=== PATIENT | female | born 1940 | race African-American/Black ===

== ENCOUNTER 2017-04-10 21:36 | Emergency (ER) | payer MEDICARE ==
--- NOTE | 2017-04-10 23:12 | CT ---
CT HEAD WITHOUT IV CONTRAST 04/10/17 HISTORY: Altered mental status. FINDINGS: There is no evidence of a hemorrhage, acute infarction, mass effect or midline shift. There is mild cerebral volume loss. The ventricular system is normal in size, shape, and position for the degree o f sulcal atrophy. Prominent dural based calcifications are seen along the falx. There is mucosal thi ckening in the right sphenoid sinus. Mastoid air cells are clear. There is no calvarial fracture see n. IMPRESSION: 1. No acute intracranial abnormalities demonstrated. 2. Mild sinus disease involving the right sphenoid sinus. POS: [facility]
--- NOTE | 2017-04-10 23:13 | RAD ---
THREE VIEWS RIGHT WRIST 04/10/17 HISTORY: Right wrist injury. Patient states right wrist pain started a couple of days ago. FINDINGS: There is mild widening of the scapholunate distance suggesting ligamentous injury. No acute fracture or dislocation is identified. IMPRESSION: 1. No acute osseous abnormality. 2. Widening of the scapholunate distance which can be seen with ligamentous instability. POS: [facility]
--- NOTE | 2017-04-10 23:16 | RAD ---
PORTABLE AP CHEST X-RAY 04/10/17 HISTORY: Altered mental status. FINDINGS: The cardiac silhouette is at the upper limits of normal in size. Pulmonary vasculature is within nor mal limits. The lungs are clear. Vascular calcification in the thoracic aorta. There is bilateral gl enohumeral osteoarthropathy. IMPRESSION: No acute cardiopulmonary process. POS: [facility]
--- NOTE | 2017-04-10 23:27 | RAD ---
THREE VIEWS OF THE RIGHT HAND 04/10/17 HISTORY: Right hand pain and wrist pain. FINDINGS: There is osteoarthritis involving the first carpometacarpal joint as well as the first metacarpophal angeal joint. Lucencies are seen in a few of the carpal bones which may be related to subchondral cy stic changes or interosseous ganglia. There is no fracture or dislocation seen. Metallic density ove rlying the proximal phalanx ring finger related to overlying external jewelry. IMPRESSION: Mild osteoarthritis, but no acute osseous abnormality is seen involving the right hand. POS: [facility]
[2017-04-10 23:30] LABS: #Eosinphils 0.1 thou/uL (0.0-0.7); #Lymphocytes 1.4 thou/uL (1.20-3.40); #Monocytes 0.7 thou/uL (0.11-0.59); #Neutrophils 3.4 thou/uL (1.40-6.50); %Basophils 0.6 % (0.0-1.0); %Eosinophils 1.4 % (0.0-10.0); %Lymphocytes 24.4 % (21.0-51.0); %Monocytes 11.8 % (0.0-10.0); %Neutrophils 61.7 % (42.0-75.0); Hemoglobin 11.7 g/dL (12.0-16.0); Mean Corpuscular HGB CONC 31.9 g/dL (32.0-36.0); Mean Corpuscular Hemoglobin 29.8 pg (27.0-31.0); Mean Corpuscular Volume 93.4 fl (81.0-99.0); Mean Platelet Volume 6.2 fL (7.4-10.4); Platelet Count 186 thou/uL (130-400); RBC Distribution Width 14.1 % (11.5-14.5); Red Blood Cell (RBC) Count 3.92 mill/uL (4.20-5.40); White Blood Cell (WBC) Count 5.6 thou/uL (4.8-10.8)
[2017-04-10 23:43] LABS: INR-International Normal Ratio 1.1; Prothrombin Time 13.9 SEC (12.0-14.7)
[2017-04-10 23:53] LABS: CKMB 1.7 ng/mL (0-6.6); Troponin I 0.024 ng/mL (< 0.028)
[2017-04-11] LABS: ALT (SGPT) 7 U/L (8-55); AST (SGOT) 21 U/L (5-34); Albumin 3.4 g/dL (3.4-4.8); Alkaline Phosphatase 106 U/L (40-150); Anion Gap 15 mmol/L (10-20); BUN (Urea Nitrogen) 18 mg/dL (9.8-20.1); Bilirubin, Total 0.6 mg/dL (0.2-1.2); Calc. Creatinine Clearance 0 mL/min (70-130); Calcium 9.1 mg/dL (7.8-10.44); Carbon Dioxide 22 mmol/L (23-31); Chloride 109 mmol/L (98-107); Estimated GFR-MDRD 54; Globulin 3.8 g/dL (2.4-3.5); Glucose 104 mg/dL (83-110); Potassium 3.5 mmol/L (3.5-5.1); Protein, Total 7.2 g/dL (6.0-8.3); Sodium 142 mmol/L (136-145)
== END 2017-04-11 02:40 | disposition short-term general hospital (02) ==
LOC: NAV ERS 21:36
DX: I44.1 Atrioventricular block, second degree (principal); I10 Essential (primary) hypertension; Z79.899 Other long term (current) drug therapy
CPT/HCPCS: 36415; 70450; 71010; 80053; 82553; 83880; 84484; 85025; 85610; 93005

== ENCOUNTER 2017-06-30 14:58 | Emergency (ER) | payer MEDICARE ==
[2017-06-30] MEDS ORDERED: Clindamycin 300 MG/2 ML VIAL ONE (17:41)
[2017-06-30] MEDS ORDERED: Sodium Chloride 0.9% 100 ML ONE (17:43)
--- NOTE | 2017-06-30 17:46 | RAD ---
PORTABLE AP CHEST X-RAY 06/30/17 HISTORY: Lower extremity edema. Right lower leg wound which has enlarged. COMPARISON: 06/13/17. FINDINGS: Dual lead left subclavian cardiac pacing device remains in place. The cardiac silhouette and pulmona ry vasculature are within normal limits. Vascular calcifications seen in the thoracic aorta. Bilater al glenohumeral osteoarthropathy is again seen suggesting intra-articular loose body inferior to the right glenohumeral joint. No other interval change. IMPRESSION: No acute cardiopulmonary process. Chest is stable from prior study. POS: [facility]
[2017-06-30 18:01] LABS: #Basophils 0.1 thou/uL (0.0-0.2); #Eosinphils 0.2 thou/uL (0.0-0.7); #Lymphocytes 1.2 thou/uL (1.20-3.40); #Monocytes 0.8 thou/uL (0.11-0.59); #Neutrophils 2.7 thou/uL (1.40-6.50); %Basophils 1.7 % (0.0-1.0); %Eosinophils 4.4 % (0.0-10.0); %Lymphocytes 24.2 % (21.0-51.0); %Monocytes 16.3 % (0.0-10.0); %Neutrophils 53.4 % (42.0-75.0); Hemoglobin 9.4 g/dL (12.0-16.0); Mean Corpuscular HGB CONC 31.4 g/dL (32.0-36.0); Mean Corpuscular Hemoglobin 28.9 pg (27.0-31.0); Mean Corpuscular Volume 92.2 fl (81.0-99.0); Mean Platelet Volume 5.5 fL (7.4-10.4); Platelet Count 213 thou/uL (130-400); RBC Distribution Width 13.8 % (11.5-14.5); Red Blood Cell (RBC) Count 3.25 mill/uL (4.20-5.40); White Blood Cell (WBC) Count 5.1 thou/uL (4.8-10.8)
[2017-06-30 18:16] LABS: Troponin I 0.038 ng/mL (< 0.028)
[2017-06-30 18:18] LABS: ALT (SGPT) 7 U/L (8-55); AST (SGOT) 15 U/L (5-34); Albumin 2.8 g/dL (3.4-4.8); Alkaline Phosphatase 66 U/L (40-150); Anion Gap 12 mmol/L (10-20); BUN (Urea Nitrogen) 20 mg/dL (9.8-20.1); Bilirubin, Total 0.3 mg/dL (0.2-1.2); CK (CPK) 85 U/L (29-168); Calc. Creatinine Clearance 0 mL/min (70-130); Calcium 8.7 mg/dL (7.8-10.44); Carbon Dioxide 23 mmol/L (23-31); Chloride 110 mmol/L (98-107); Estimated GFR-MDRD 59; Globulin 3.4 g/dL (2.4-3.5); Glucose 102 mg/dL (83-110); Potassium 3.8 mmol/L (3.5-5.1); Protein, Total 6.2 g/dL (6.0-8.3); Sodium 141 mmol/L (136-145)
== END 2017-06-30 19:39 | disposition short-term general hospital (02) ==
LOC: NAV ERS 14:58
DX: L03.115 Cellulitis of right lower limb (principal); D64.9 Anemia, unspecified; I89.0 Lymphedema, not elsewhere classified; F03.90 Unspecified dementia, unspecified severity, without behavioral disturbance, psychotic disturbance, mood disturbance, and anxiety; I10 Essential (primary) hypertension; Z79.82 Long term (current) use of aspirin; Z79.899 Other long term (current) drug therapy
CPT/HCPCS: 71010; 80053; 82553; 83880; 84484; 85025; 87040; 93005; 96365; J3490

== ENCOUNTER 2017-08-19 19:14 | Emergency (ER) | payer MEDICARE ==
[2017-08-19] MEDS ORDERED: Furosemide 40 MG/4 ML VIAL ONE (19:53)
[2017-08-19 20:07] LABS: #Basophils 0.1 thou/uL (0.0-0.2); #Eosinphils 0.1 thou/uL (0.0-0.7); #Lymphocytes 1.3 thou/uL (1.20-3.40); #Monocytes 0.8 thou/uL (0.11-0.59); #Neutrophils 2.7 thou/uL (1.40-6.50); %Basophils 1.2 % (0.0-1.0); %Eosinophils 2.2 % (0.0-10.0); %Lymphocytes 25.8 % (21.0-51.0); %Monocytes 15.7 % (0.0-10.0); %Neutrophils 55.1 % (42.0-75.0); Hemoglobin 10.3 g/dL (12.0-16.0); Mean Corpuscular HGB CONC 29.7 g/dL (32.0-36.0); Mean Corpuscular Hemoglobin 30.7 pg (27.0-31.0); Mean Platelet Volume 6.6 fL (7.4-10.4); Platelet Count 194 thou/uL (130-400); RBC Distribution Width 13.7 % (11.5-14.5); Red Blood Cell (RBC) Count 3.36 mill/uL (4.20-5.40)
[2017-08-19 20:23] LABS: CKMB 0.8 ng/mL (0-6.6); Troponin I 0.014 ng/mL (< 0.028)
[2017-08-19 20:30] LABS: Anion Gap 15 mmol/L (10-20); BUN (Urea Nitrogen) 15 mg/dL (9.8-20.1); Calc. Creatinine Clearance 0 mL/min (70-130); Carbon Dioxide 19 mmol/L (23-31); Chloride 110 mmol/L (98-107); Estimated GFR-MDRD 70; Potassium 4.2 mmol/L (3.5-5.1); Sodium 140 mmol/L (136-145)
[2017-08-19 20:31] LABS: ALT (SGPT) 7 U/L (8-55); AST (SGOT) 19 U/L (5-34); Albumin 2.8 g/dL (3.4-4.8); Alkaline Phosphatase 84 U/L (40-150); Bilirubin, Total 0.3 mg/dL (0.2-1.2); Globulin 4.3 g/dL (2.4-3.5); Glucose 106 mg/dL (83-110); Protein, Total 7.1 g/dL (6.0-8.3)
[2017-08-19] MEDS ORDERED: Enoxaparin Sodium 40 MG/0.4 ML SYRINGE ONE (22:37)
[2017-08-19 22:40] LABS: Bilirubin Negative (Negative); Blood, Urine Moderate (Negative); Clarity Clear (Clear); Glucose, Urine (Dipstick) Negative (Negative); Leukocyte Negative (Negative); Nitrite Negative (Negative); Protein, Urine (Dipstick) Negative (Neg-Trace); Specific Gravity, Urine 1.015 (1.005-1.030); Urobilinogen 0.2 mg/dL (0.2-1.0)
[2017-08-19 22:49] LABS: Bacteria/HPF Rare-Few HPF (None Seen); Squamous Epithelial 0-3 HPF (0-3); WBC/HPF 0-3 HPF (0-3)
== END 2017-08-19 22:54 | disposition short-term general hospital (02) ==
LOC: NAV ERS 19:14
DX: I11.0 Hypertensive heart disease with heart failure (principal); I50.21 Acute systolic (congestive) heart failure; I89.0 Lymphedema, not elsewhere classified; R79.1 Abnormal coagulation profile; E78.5 Hyperlipidemia, unspecified; F03.90 Unspecified dementia, unspecified severity, without behavioral disturbance, psychotic disturbance, mood disturbance, and anxiety; Z79.899 Other long term (current) drug therapy
CPT/HCPCS: 51702; 80053; 81003; 81015; 82553; 83880; 84484; 85025; 85379; 87086; 96372; 96374; J1650; J1940

== ENCOUNTER 2017-11-25 13:15 | Emergency (ER) | payer MEDICARE ==
[2017-11-25] MEDS ORDERED: Adacel (T-DAP) 0.5 ML VIAL ONE (13:30)
--- NOTE | 2017-11-25 13:59 | CT ---
CT BRAIN WITHOUT CONTRAST: Date: 11/25/17 HISTORY: 77-year-old female with fall, dementia. FINDINGS: Comparison made with exam of 06/13/17. Changes of cortical atrophy and chronic small vessel ischemic disease area again seen. Bilateral basa l ganglia calcifications are again noted. No evidence of acute infarct, hemorrhage, midline shift, or abnormal extra-axial fluid collections are seen. The bony calvarium is intact. Visualized paranasal sinuses and mastoid air cells are well aerated. IMPRESSION: No CT evidence of acute intracranial process. POS: [facility]
--- NOTE | 2017-11-25 14:12 | CT ---
NONCONTRAST CT CERVICAL SPINE: Date: 11/25/17 HISTORY: Patient fell out of bed. History of dementia. Patient on backboard and c-collar. Neck injury. TECHNIQUE: Contiguous axial CT images are obtained through the cervical spine from the skull base to the T1-2 le sintia. Sagittal and coronal reformatted images are provided. FINDINGS: Multilevel degenerative changes are seen. There is narrowing of the intervertebral disc spaces at all levels with posterior osteophyte formation seen at multiple levels. End plate degenerative changes a re seen at multiple levels with levels demonstrating what appear to represent Schmorl's nodes. No fra cture or subluxation is seen involving the cervical spine. The prevertebral soft tissues are within n ormal limits. Visualized lung apices demonstrate a normal CT appearance. There is coarse calcificatio n seen adjacent to the innominate artery, which was also seen on a prior CTA of the chest on 10/12/11 . IMPRESSION: Multilevel degenerative changes in the cervical spine, but no fracture or subluxation is identified. POS: [facility]
[2017-11-25] MEDS ORDERED: Lidocaine 1% 20 ML MDV ONE (14:28)
== END 2017-11-25 15:30 | disposition home or self-care (01) ==
LOC: NAV ERS 13:15
DX: S01.111A Laceration without foreign body of right eyelid and periocular area, initial encounter (principal); S01.81XA Laceration without foreign body of other part of head, initial encounter; I87.8 Other specified disorders of veins; E78.5 Hyperlipidemia, unspecified; F03.90 Unspecified dementia, unspecified severity, without behavioral disturbance, psychotic disturbance, mood disturbance, and anxiety; I10 Essential (primary) hypertension; F41.9 Anxiety disorder, unspecified; Z79.899 Other long term (current) drug therapy; W06.XXXA Fall from bed, initial encounter
CPT/HCPCS: 12011; 70450; 72125; 90471; 90715; J2001

== ENCOUNTER 2018-04-02 10:33 | Emergency (ER) | payer MEDICARE ==
[2018-04-02] MEDS ORDERED: Acetaminophen 500 MG TAB ONE (11:27)
[2018-04-02] MEDS ORDERED: cloNIDine 0.2 MG TAB ONE (11:27)
--- NOTE | 2018-04-02 11:55 | RAD ---
LEFT HAND RADIOGRAPHS 3 VIEWS: Date: 04/02/18 PROVIDED CLINICAL HISTORY: Left hand swelling without known injury. FINDINGS: Degenerative changes are seen at the first CMC joint. There is no evidence for fracture or other acut e osseous abnormality. Alignment appears anatomic. Joint spaces appear preserved. Nonspecific regiona l soft tissue swelling involving the dorsum of the hand and volar aspects of the hand and wrist. IMPRESSION: No evidence for an acute osseous abnormality. Nonspecific soft tissue swelling. POS: [facility]
[2018-04-02 12:27] LABS: Mean Corpuscular HGB CONC 31.6 g/dL (32.0-36.0); Mean Corpuscular Hemoglobin 29.1 pg (27.0-31.0); Mean Corpuscular Volume 92.2 fl (81.0-99.0); Mean Platelet Volume 6.6 fL (7.4-10.4); Platelet Count 214 thou/uL (130-400); RBC Distribution Width 12.8 % (11.5-14.5); Red Blood Cell (RBC) Count 4.46 mill/uL (4.20-5.40); White Blood Cell (WBC) Count 6.5 thou/uL (4.8-10.8)
[2018-04-02 12:27] LABS: Bilirubin Negative (Negative); Blood, Urine Moderate (Negative); Clarity Clear (Clear); Glucose, Urine (Dipstick) Negative (Negative); Leukocyte Negative (Negative); Nitrite Negative (Negative); Protein, Urine (Dipstick) Trace mg/dL (Neg-Trace); Specific Gravity, Urine 1.015 (1.005-1.030); pH, Urine 5.5 (5.0-9.0)
[2018-04-02 12:41] LABS: Band 3 % (5-11); Lymphocytes 23 % (21-51); MDiff Complete? YES; Monocytes 9 % (0-10); Neutrophil 65 % (42-75); PLT Morphology Comment Appears Adequate; RBC Morphology Normal
[2018-04-02 12:53] LABS: Bacteria/HPF Rare-Few HPF (None Seen); RBC/HPF 0-3 HPF (0-3); Squamous Epithelial 0-3 HPF (0-3); WBC/HPF None Seen HPF (0-3)
[2018-04-02 13:06] LABS: ALT (SGPT) 8 U/L (8-55); AST (SGOT) 16 U/L (5-34); Albumin 3.3 g/dL (3.4-4.8); Alkaline Phosphatase 65 U/L (40-150); Anion Gap 15 mmol/L (10-20); BUN (Urea Nitrogen) 25 mg/dL (9.8-20.1); Bilirubin, Total 0.9 mg/dL (0.2-1.2); Calc. Creatinine Clearance 0 mL/min (70-130); Calcium 9.4 mg/dL (7.8-10.44); Carbon Dioxide 21 mmol/L (23-31); Chloride 106 mmol/L (98-107); Estimated GFR-MDRD 55; Globulin 3.6 g/dL (2.4-3.5); Glucose 114 mg/dL (83-110); Potassium 3.7 mmol/L (3.5-5.1); Protein, Total 6.9 g/dL (6.0-8.3); Sodium 138 mmol/L (136-145)
[2018-04-02] MEDS ORDERED: Clindamycin 150 MG CAP ONE (13:28)
[2018-04-02 14:31] LABS: CKMB 0.6 ng/mL (0-6.6); Troponin I 0.031 ng/mL (< 0.028)
[2018-04-02] MEDS ORDERED: Sodium Chloride 0.9% 250 ML 250 ML ONE (15:25)
[2018-04-02 15:58] LABS: INR-International Normal Ratio 1.2; PTT 39.7 SEC (22.9-36.1); Prothrombin Time 15.4 SEC (12.0-14.7)
== END 2018-04-02 16:19 | disposition short-term general hospital (02) ==
LOC: NAV ERS 10:33
DX: L03.114 Cellulitis of left upper limb (principal); E78.5 Hyperlipidemia, unspecified; I10 Essential (primary) hypertension; F03.90 Unspecified dementia, unspecified severity, without behavioral disturbance, psychotic disturbance, mood disturbance, and anxiety; F41.9 Anxiety disorder, unspecified; Z79.899 Other long term (current) drug therapy
CPT/HCPCS: 36415; 80053; 81003; 81015; 82553; 83605; 84484; 85025; 85610; 85652; 85730; 87040; 87086; 93005; 96361; 96365; J3370; J7050

== ENCOUNTER 2018-04-23 19:20 | Emergency (ER) | payer MEDICARE | END 2018-04-23 20:20 | disposition home or self-care (01) | LOC: NAV ERS 19:20 | DX: M75.01 Adhesive capsulitis of right shoulder (principal); E78.5 Hyperlipidemia, unspecified; I10 Essential (primary) hypertension; F03.90 Unspecified dementia, unspecified severity, without behavioral disturbance, psychotic disturbance, mood disturbance, and anxiety; F41.9 Anxiety disorder, unspecified; Z79.899 Other long term (current) drug therapy | CPT/HCPCS: 99283 ==

== ENCOUNTER 2018-11-24 13:40 | Emergency (ER) | payer MEDICARE ==
[2018-11-24 14:49] LABS: ALT (SGPT) 14 U/L (8-55); AST (SGOT) 33 U/L (5-34); Albumin 3.6 g/dL (3.4-4.8); Alkaline Phosphatase 120 U/L (40-150); Anion Gap 18 mmol/L (10-20); BUN (Urea Nitrogen) 45 mg/dL (9.8-20.1); Bilirubin, Total 0.4 mg/dL (0.2-1.2); Calc. Creatinine Clearance 0 mL/min (70-130); Calcium 10.7 mg/dL (7.8-10.44); Carbon Dioxide 15 mmol/L (23-31); Chloride 111 mmol/L (98-107); Estimated GFR-MDRD 43; Globulin 4.7 g/dL (2.4-3.5); Glucose 90 mg/dL (83-110); Protein, Total 8.3 g/dL (6.0-8.3); Sodium 139 mmol/L (136-145)
[2018-11-24 14:51] LABS: Eosinophils 4 % (0-10); Hemoglobin 13.3 g/dL (12.0-16.0); Lymphocytes 36 % (21-51); MDiff Complete? YES; Mean Corpuscular Volume 96.7 fL (78.0-98.0); Mean Platelet Volume 5.7 fL (7.4-10.4); Monocytes 13 % (0-10); Neutrophil 47 % (42-75); Platelet Count 194 thou/uL (130-400); Platelet Morphology Comment Appears Adequate; RBC Distribution Width 13.5 % (11.5-14.5); Red Blood Cell (RBC) Count 4.28 mill/uL (4.20-5.40); White Blood Cell (WBC) Count 3.7 thou/uL (4.8-10.8)
[2018-11-24] MEDS ORDERED: Acetaminophen 500 MG TAB ONE (14:57)
== END 2018-11-24 15:24 | disposition home or self-care (01) ==
LOC: NAV ERS 13:40
DX: I15.8 Other secondary hypertension (principal); F41.9 Anxiety disorder, unspecified; F03.90 Unspecified dementia, unspecified severity, without behavioral disturbance, psychotic disturbance, mood disturbance, and anxiety; I73.9 Peripheral vascular disease, unspecified; Z79.899 Other long term (current) drug therapy
CPT/HCPCS: 80053; 85025; 99283

== ENCOUNTER 2022-08-02 16:25 | Emergency (ER) | payer OTHER ==
[2022-08-02 16:56] LABS: #Eosinphils 0.1 thou/uL (0.0-0.7); #Lymphocytes 1.1 thou/uL (1.20-3.40); #Monocytes 0.5 thou/uL (0.11-0.59); #Neutrophils 2.8 thou/uL (1.40-6.50); %Basophils 0.7 % (0.0-1.0); %Eosinophils 1.5 % (0.0-10.0); %Lymphocytes 23.9 % (21.0-51.0); %Neutrophils 61.9 % (42.0-75.0); Hemoglobin 9.5 g/dL (12.0-16.0); Mean Corpuscular HGB CONC 31.1 g/dL (32.0-36.0); Mean Corpuscular Hemoglobin 32.4 pg (27.0-31.0); Mean Platelet Volume 5.6 fL (7.4-10.4); Platelet Count 234 thou/uL (130-400); RBC Distribution Width 14.9 % (11.5-14.5); Red Blood Cell (RBC) Count 2.92 mill/uL (4.20-5.40); White Blood Cell (WBC) Count 4.5 thou/uL (4.8-10.8)
[2022-08-02] MEDS ORDERED: Dextrose 5 % And 0.9 % NaCl 1,000 ML ONE (17:09)
[2022-08-02 17:14] LABS: ALT (SGPT) 17 U/L (8-55); AST (SGOT) 33 U/L (5-34); Albumin 2.4 g/dL (3.4-4.8); Alkaline Phosphatase 108 U/L (40-110); Anion Gap 15 mmol/L (10-20); BUN (Urea Nitrogen) 13 mg/dL (9.8-20.1); Bilirubin, Total 0.2 mg/dL (0.2-1.2); Calc. Creatinine Clearance 0 mL/min (70-130); Calcium 8.4 mg/dL (7.8-10.44); Carbon Dioxide 23 mmol/L (23-31); Chloride 105 mmol/L (98-107); Estimated GFR 88; Globulin 3.5 g/dL (2.4-3.5); Glucose 197 mg/dL (83-110); Potassium 4.4 mmol/L (3.5-5.1); Protein, Total 5.9 g/dL (5.8-8.1); Sodium 139 mmol/L (136-145)
[2022-08-02] MEDS ORDERED: Dextrose 10% in Water 1,000 ML IV SCH (19:45)
[2022-08-02] MEDS ORDERED: Dextrose 10% in Water 1,000 ML ONE ×2 (20:29→23:35)
== END 2022-08-02 22:16 | disposition short-term general hospital (02) ==
LOC: NAV ERS 16:25
DX: E16.2 Hypoglycemia, unspecified (principal)
CPT/HCPCS: 36416; 80053; 84443; 85025; 94760; 96374; 96375; 96376; 36415-59; J1610; J7042